=== PATIENT | male | born 2005 | race Caucasian/White ===

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

== ENCOUNTER 2025-04-02 19:30 | Emergency (ER) | payer MEDICAID ==
[2025-04-02 20:12] LABS: BASOPHILS ABSOLUTE AUTO 0.03 K/uL (0.00-0.10); BASOPHILS PERCENT AUTO 0.4 % (0.1-1.3); EOSINOPHILS ABSOLUTE AUTO 0.45 K/uL (0.00-0.40); EOSINOPHILS PERCENT AUTO 5.8 % (0.0-5.4); IMMATURE GRAN ABSOLUTE AUTO 0.03 K/uL (0.00-0.23); IMMATURE GRAN PERCENT AUTO 0.4 % (0.0-0.7); LYMPHOCYTES ABSOLUTE AUTO 1.07 K/uL (0.8-3.3); LYMPHOCYTES PERCENT AUTO 13.9 % (11.4-47.7); MONOCYTES ABSOLUTE AUTO 1.13 K/uL (0.20-0.90); MONOCYTES PERCENT AUTO 14.7 % (3.3-12.6); NEUTROPHILS ABSOLUTE AUTO 5.00 K/uL (1.0-7.6); NEUTROPHILS PERCENT AUTO 64.8 % (40.0-78.1); PLATELET COUNT,PLT 260 K/uL (130-375); RED BLOOD CELL COUNT 3.54 M/uL (4.14-5.76); WHITE BLOOD CELL COUNT,WBC 7.7 K/uL (3.2-11.0)
[2025-04-02 20:14] LABS: BASE EXCESS VENOUS 3.1 mm/L; BICARBONATE,VENOUS 28.8 mmol/L; O2 SATURATION VENOUS 74.1; OXYHEMOGLOBIN 72.1 %; PCO2 VENOUS 51.4 mm/Hg; PH,VENOUS 7.367 (7.350-7.450); PO2 VENOUS 42.0 mm/Hg; TOTAL HEMOGLOBIN 11.8 g/dL (13.5-18.0)
[2025-04-02 20:34] LABS: BLOOD UREA NITROGEN,BUN 56 mg/dL (7-18); CARBON DIOXIDE,CO2 29 mmol/L (21-32); CHLORIDE,CL 105 mmol/L (100-108); CREATININE 2.1 mg/dL (0.8-1.3); ESTIMATED GFR 46 mL/min (>60); GLUCOSE RANDOM 98 mg/dL (74-106); POTASSIUM,K 4.7 mmol/L (3.6-5.2); SODIUM,NA 143 mmol/L (140-148)
[2025-04-02 21:50] VITALS: BP 105/60; PULSE 53
== END 2025-04-02 21:52 | disposition home or self-care (01) ==
LOC: JP.ED 19:30
DX: J69.0 Pneumonitis due to inhalation of food and vomit (principal); R06.81 Apnea, not elsewhere classified; I10 Essential (primary) hypertension; K21.9 Gastro-esophageal reflux disease without esophagitis; E03.9 Hypothyroidism, unspecified; Z86.16 Personal history of COVID-19; Z88.8 Allergy status to other drugs, medicaments and biological substances; Z91.040 Latex allergy status; Z91.048 Other nonmedicinal substance allergy status
CPT/HCPCS: 36415; 71045; 71045-26; 80048; 82803; 85025; 86140; 99285

== ENCOUNTER 2025-06-05 17:23 | Emergency (ER) | payer MEDICAID ==
[2025-06-05 19:05] VITALS: BP 109/51; PULSE 44
[2025-06-05 19:56] LABS: PLATELET COUNT,PLT 244.0 K/uL (130-375); RED BLOOD CELL COUNT 3.79 M/uL (4.14-5.76); WHITE BLOOD CELL COUNT,WBC 5.9 K/uL (3.2-11.0)
[2025-06-05] MEDS: Sodium Chloride 0.9% 10 ML Syringe FLUSH PRN (20:50)
== END 2025-06-05 21:30 ==
LOC: JP.ED 17:23
DX: K94.21 Gastrostomy hemorrhage (principal); I10 Essential (primary) hypertension; E03.9 Hypothyroidism, unspecified; K21.9 Gastro-esophageal reflux disease without esophagitis; Z88.8 Allergy status to other drugs, medicaments and biological substances; Z91.048 Other nonmedicinal substance allergy status; Z91.040 Latex allergy status; Z79.899 Other long term (current) drug therapy; Y83.3 Surgical operation with formation of external stoma as the cause of abnormal reaction of the patient, or of later complication, without mention of misadventure at the time of the procedure
CPT/HCPCS: 36415; 85027; 96374; 99284; J1642; J2470